=== PATIENT | female | born 1930 | race Caucasian/White ===

== ENCOUNTER → 2017-02-04 | Outpatient (CLI) | payer MEDICARE, BC ==
--- NOTE | 2017-02-05 13:22 | PE ---
EXAMINATION TYPE: PET CT fusion skull to thigh DATE OF EXAM: 02/04/2017 6:55 PM COMPARISON: No relevant studies. Prior PET/CT: No priors. HISTORY: Melanoma TECHNIQUE: Following the intravenous administration of 15.5 to mCi of F-18 FDG, whole body images ar e performed from the skull base to the midthigh. Images are reviewed on the computer in the coronal, axial, and sagittal planes. Reconstructed rotating images are created on independent workstation an d reviewed on the computer. A localization and attenuation correction CT is performed in conjunctio n with the PET scan. DLP: 486.67 and 100.4 mGycm SCAN: Initial Blood glucose: 113 mg/dL Average Mediastinum SUV: 2.1 Average Liver SUV: 3.56 FINDINGS: NECK: No abnormal uptake THORAX: There is a focal area of increased radiotracer within the left upper lung field measuring 3.9 2 Hounsfield units, image 83. A nodular density within the anterior left upper lung field has Hounsfi eld unit measuring 26, image 91. A posterior nodule at the same level on the left lung measures 7.3 S UV. Within the right lung near the mediastinum is an SUV value nodule measuring 5.1 on image 91 PET s can. Nodules are at the level of the aorto pulmonic window level within the left and right upper lung cote measuring 2.7 SUV on the left measuring 3.98 SUV on the right. PET image 98. A nodule in the left perihilar region has an SUV value of 18.34. PET image 102. A posterior left lung nodule has an S UV value of 15. Image 106. Couple of subtle infrahilar areas and intermediate uptake of 1.9 with a mo re suspicious area of 3.0 more laterally, PET image 106. A right middle lobe anterior mediastinal nod ule has an SUV value of 9.7, PET image 111. External to the CT localization scan which appears to lie within the lateral arm on the left there are 2 focal areas of increased radiotracer accumulation holly picious for additional metastatic lesions measuring SUV value of 13 and 7.8. PET image 110. Couple of small nodules within the right lung base on image 113 has an SUV value 2.6 posteriorly and 6.5 anter iorly. 2 posterior left lung nodules on image 118 measure 11.5 and 5.7 SUV values. At the same level on the right is a 4.7 SUV value nodule. An additional left arm area of uptake is present. ABDOMEN: No abnormal uptake PELVIS: Within the anterior pelvis and what may be the cecum is uptake. Focal uptake within the bowel can be normal. Metastatic lesion is not excluded. Additionally, within the mid sigmoid colon is a fo paula area of increased radiotracer accumulation likewise could be normal uptake or metastatic lesion. These are somewhat more focal in typically expected. Within the subcutaneous tissues anterior lateral right thigh is a focal area of increased uptake measuring 9.5 SUV value. Image 249. There is a subcu taneous area of uptake within the anterior medial left thigh, image 296 with an SUV value of 4.3. OSSEOUS STRUCTURES: No abnormal uptake Lower extremities: Lower thighs through the feet abnormal radiotracer accumulation Brain: Radiotracer accumulation within the brain appears appropriate and symmetrical. No suspicious f ocal accumulations are evident. LOCALIZATION CT: Nodules within the lung cote. Correspond to abnormal uptake suspicious for metasta tic melanoma. Sigmoid diverticulosis is present. The ascending thoracic aorta at the level of the donald n pulmonary artery is 2.9 cm. The main pulmonary artery at the bifurcation is 2.4 cm. COMPARISON: None IMPRESSION: 1. Multiple pulmonary nodules suspicious for metastatic melanoma. 2. Radiotracer accumulation within the bilateral soft tissues of the thigh suspicious for metastatic disease. 3. Additionally, there may be soft tissue metastatic disease within the left arm. Injection site accu mulation within this region is within the differential which is incompletely evaluated on this exam. 4. Uptake within a focal area which may be the cecum and the mid sigmoid colon within the pelvis are nonspecific. Metastatic disease as well as normal uptake within loops of bowel are within the differe ntial.
== END | disposition home or self-care (01) ==
LOC: RADPETMAIN 15:18
PROVIDERS: ATTEND Family Medicine
DX: C43.62 Malignant melanoma of left upper limb, including shoulder (principal); R91.8 Other nonspecific abnormal finding of lung field
CPT/HCPCS: 78815; A9552

== ENCOUNTER → 2017-02-17 | Outpatient (CLI) | payer MEDICARE, BC ==
[2017-02-17 14:26] VITALS: BP 133/61; PULSE 90; RESP 16; TEMP 98.5
--- NOTE | 2017-02-17 16:21 | P.PCN ---
Date of Procedure: 02/17/17 Procedure(s) Performed: PREOPERATIVE DIAGNOSIS: Left arm recurrent melanoma POSTOPERATIVE DIAGNOSIS: Same PROCEDURE: Incisional biopsy SURGEON: Shane EBL: 5 mL ANESTHESIA: Local COMPLICATIONS: None OPERATIVE PROCEDURE: The left arm was prepped with DuraPrep. The skin was localized with lidocaine. An elliptical incision was made excising the majority of what appeared to represent a metastatic melanoma deposit in the left brachial region. The specimen size was 1.5 x 1 cm. The subcutaneous tissues were closed using 3-0 Vicryl sutures and the skin was closed using 4-0 nylon sutures. Dressings were applied. DISPOSITION: Stable to recovery room
== END | disposition home or self-care (01) ==
LOC: PROCWHC3 14:06
PROVIDERS: ATTEND Surgery
DX: C43.62 Malignant melanoma of left upper limb, including shoulder (principal); L57.8 Other skin changes due to chronic exposure to nonionizing radiation; W89.9XXA Exposure to unspecified man-made visible and ultraviolet light, initial encounter
CPT/HCPCS: 88305; 88341; 88342

== ENCOUNTER → 2017-07-22 | Outpatient (CLI) | payer MEDICARE, BC ==
--- NOTE | 2017-07-25 14:59 | PE ---
Nuclear medicine PET/CT HISTORY: Melanoma The patient received 14.4 mCi F-18 FDG intravenously and delayed whole-body scanning was performed. W hole body CT scan also performed for attenuation correction, localization. Comparison to previous exam dated 02/04/2017 Head and neck: No evident adenopathy. No suspicious hypermetabolic uptake. CHEST: Multiple lung masses are again noted. Left upper lobe mass pleural-based anteriorly and measur es approximately 3 cm in greatest transverse dimension whereas on previous exam the lesion measured 2 .4 cm., SUV 8.8 decreased from prior, SUV 28. In the superior segment of the left lower lobe there is a soft tissue mass measuring approximately 12 mm in diameter which measured 14 mm on prior, SUV 3.1 as compared to prior exam SUV 15. Left upper lobe lesions that were subcentimeter in size on previous exam as well as in the left lower lobe are not seen. There is a lesion towards the left hilum measur ing approximately 18 mm which measured approximately the same on prior, SUV 8.3 as compared to prior 18.3. There is no pleural effusion. Right upper lobe lesion is also no longer seen. Retrocaval pretra cheal lymph node is again noted, prevascular nodes again seen. The heart remains enlarged. Abdomen pelvis: No suspicious mass or hypermetabolic uptake. EXTREMITIES: There is some hypermetabolic uptake seen within the soft tissues at the level of the mid diaphysis of the left humerus. There is associated hypermetabolic uptake. SUV 5.2, decreased from pr ior when it measured 24. IMPRESSION: Tumor response as described.
== END | disposition home or self-care (01) ==
LOC: RADPETMAIN 10:19
PROVIDERS: ATTEND Internal Medicine Hematology & Oncology
DX: C43.62 Malignant melanoma of left upper limb, including shoulder (principal)
CPT/HCPCS: 78816; A9552

== ENCOUNTER 2017-12-09 12:14 | Emergency (ER) | payer MEDICARE, BC ==
[2017-12-09] MEDS ORDERED: PIPERACILLIN-TAZOBACTAM 3.375 GM in DEXTROSE/WATER 1 50ML.BAG IVPB STA (12:57)
[2017-12-09] MEDS ORDERED: SODIUM CHLORIDE 0.9% 500 ML IV SCH (13:00)
--- NOTE | 2017-12-09 13:06 | ED ---
General Adult HPI - General Chief complaint: Wound/Laceration Stated complaint: Right foot problems Time Seen by Provider: 12/09/17 12:42 Source: patient, family, RN notes reviewed Mode of arrival: wheelchair Limitations: no limitations - History of Present Illness Initial comments: Patient is a pleasant 87-year-old female presenting to the emergency Department with complaints of right foot problems. Patient developed blisters in September. Patient did see a vascular doctor and was referred to another vascular doctor. Patient canceled 2 appointments and never followed up. Family noticed today that patient has not been moving around the house and leaving the department. They also noticed problems with the right foot. Patient states right foot pain only occurs with ambulation. Patient is diabetic. Patient does complain of some right knee discomfort. - Related Data Home Medications Medication Instructions Recorded Confirmed Atorvastatin [Lipitor] 40 mg PO HS 02/17/17 12/09/17 Metoprolol Tartrate [Lopressor] 50 mg PO BID 02/17/17 12/09/17 amLODIPine BESYLATE [Norvasc] 5 mg PO BID 02/17/17 12/09/17 diphenhydrAMINE [Benadryl] 50 mg PO DAILY PRN 09/20/17 12/09/17 glipiZIDE XL [Glucotrol Xl] 2.5 mg PO DAILY 12/09/17 12/09/17 Allergies Allergy/AdvReac Type Severity Reaction Status Date / Time Influenza Virus Vaccines Allergy Unknown Verified 12/09/17 13:25 lisinopril Allergy Rash/Hives Verified 12/09/17 13:25 Review of Systems ROS Statement: Those systems with pertinent positive or pertinent negative responses have been documented in the HPI. ROS Other: All systems not noted in ROS Statement are negative. Constitutional: Denies: fever Eyes: Denies: eye pain ENT: Denies: ear pain Respiratory: Denies: cough Cardiovascular: Denies: chest pain Endocrine: Denies: fatigue Gastrointestinal: Denies: abdominal pain Genitourinary: Denies: dysuria Musculoskeletal: Denies: back pain Skin: Reports: rash Neurological: Denies: weakness Past Medical History Past Medical History: Cancer, Chest Pain / Angina, Diabetes Mellitus, GERD/ Reflux, Hyperlipidemia, Hypertension, Myocardial Infarction ([place]) Additional Past Medical History / Comment(s): melanoma 2016 Last Myocardial Infarction Date:: 2011 History of Any Multi-Drug Resistant Organisms: None Reported Past Surgical History: Adenoidectomy, Appendectomy, Heart Catheterization, Hysterectomy, Tonsillectomy Additional Past Surgical History / Comment(s): oartic valve replacement Past Anesthesia/Blood Transfusion Reactions: No Reported Reaction Past Psychological History: No Psychological Hx Reported Smoking Status: Former smoker Past Alcohol Use History: None Reported Past Drug Use History: None Reported - Past Family History Father Additional Family Medical History / Comment(s): black lung Mother History Unknown: Yes Family Medical History: Congestive Heart Failure (CHF) Additional Family Medical History / Comment(s): heart problems General Exam Limitations: no limitations General appearance: alert, in no apparent distress Head exam: Present: atraumatic Eye exam: Present: normal appearance, PERRL ENT exam: Present: normal oropharynx Neck exam: Present: normal inspection Respiratory exam: Present: normal lung sounds bilaterally Cardiovascular Exam: Present: regular rate, normal rhythm, systolic murmur Expanded Peripheral pulses: 0: Posterior Tibialis (R), Posterior Tibialis (L), Dorsalis Pedis (R), Dorsalis Pedis (L), 1+: Femoral (R), Femoral (L) GI/Abdominal exam: Present: soft. Absent: tenderness Extremities exam: Present: other (Absent pulses right foot. There is erythema extending to just below the knee. There is gangrenous discoloration of the distal toes, especially the great toe. There is a stage II ulcers to the distal right and lateral right midfoot. No tenderness. Left foot also with absent pulses and minimal gangrenous discoloration to the left great toe.) Neurological exam: Present: alert Psychiatric exam: Present: normal affect, normal mood Skin exam: Present: other (Erythema right lower leg. Gangrenous discoloration right foot and left great toe. Ulcers right foot.) Course Vital Signs 12/09/17 12:17 Temperature 97.6 F Pulse Rate 85 Respiratory 18 Rate Blood Pressure 139/90 O2 Sat by Pulse 98 Oximetry - Reevaluation(s) Reevaluation #1: 12/09/17 13:05 Unable to get right dorsalis pedis or posterior tibialis pulse with Doppler. Left dorsalis pedis is faint with Doppler. EKG Findings - EKG Comments: EKG Findings:: Normal sinus rhythm 91. PA 178. QRS 104. QT 384. QTC 472. Left axis. Septal Q waves. Nonspecific ST-T. Medical Decision Making - Medical Decision Making Case was discussed with Dr. Barbour who is going to surgery at this time and does recommend transfer. He believes patient was supposed to see Dr. Dubon, and family agrees. Case was then discussed with Dr. Ramirez at [facility], who will accept transfer. Patient and family were updated. - Lab Data Result diagrams: 12/09/17 13:03 Lab Results 12/09/17 12/09/17 Range/Units 13:03 13:03 WBC 15.3 H (3.8-10.6) k/uL RBC 4.47 (3.80-5.40) m/uL Hgb 12.9 (11.4-16.0) gm/dL Hct 41.6 (34.0-46.0) % MCV 93.0 (80.0-100.0) fL MCH 28.8 (25.0-35.0) pg MCHC 31.0 (31.0-37.0) g/dL RDW 12.6 (11.5-15.5) % Plt Count 401 (150-450) k/uL Neutrophils % 86 % Lymphocytes % 7 % Monocytes % 5 % Eosinophils % 2 % Basophils % 0 % Neutrophils # 13.2 H (1.3-7.7) k/uL Lymphocytes # 1.1 (1.0-4.8) k/uL Monocytes # 0.7 (0-1.0) k/uL Eosinophils # 0.2 (0-0.7) k/uL Basophils # 0.0 (0-0.2) k/uL Hypochromasia Slight PT 10.2 (9.0-12.0) sec INR 1.0 (<1.2) APTT 22.6 (22.0-30.0) sec Disposition Clinical Impression: Arterial insufficiency, Gangrene of right foot Disposition: OTHER INSTITUTION NOT DEFINED Condition: Serious Referrals: Akbar Paredes DO [Primary Care Provider] - 1-2 days Time of Disposition: 13:30 - Out of Hospital Transfer - Req. Specs Out of Hospital Transfer - Requested Specifics: Other Emergency Center
[2017-12-09 13:18] LABS: Basophils % (A) 0 %; Eosinophils # (A) 0.2 k/uL (0-0.7); Eosinophils % (A) 2 %; HCT 41.6 % (34.0-46.0); HGB 12.9 gm/dL (11.4-16.0); Hypochromasia Slight; Lymphocytes # (A) 1.1 k/uL (1.0-4.8); Lymphocytes % (A) 7 %; MCH 28.8 pg (25.0-35.0); Mean Platelet Volume 6.9; Monocytes # (A) 0.7 k/uL (0-1.0); Monocytes % (A) 5 %; Neutrophils # (A) 13.2 k/uL (1.3-7.7); Neutrophils % (A) 86 %; Platelet Count 401 k/uL (150-450); RBC 4.47 m/uL (3.80-5.40); RDW 12.6 % (11.5-15.5); WBC 15.3 k/uL (3.8-10.6)
[2017-12-09 13:26] LABS: Partial Thromboplastin Time 22.6 sec (22.0-30.0); Prothrombin Time 10.2 sec (9.0-12.0)
[2017-12-09 13:28] LABS: ALT 26 U/L (9-52); AST 31 U/L (14-36); Albumin 3.1 g/dL (3.5-5.0); Alkaline Phosphatase 142 U/L (38-126); Anion Gap 11 mmol/L; Blood Urea Nitrogen 15 mg/dL (7-17); Calcium 8.8 mg/dL (8.4-10.2); Carbon Dioxide 27 mmol/L (22-30); Chloride 100 mmol/L (98-107); Glucose 164 mg/dL (74-99); Potassium 4.2 mmol/L (3.5-5.1); Sodium 138 mmol/L (137-145); Total Bilirubin 0.7 mg/dL (0.2-1.3); Total Protein 6.5 g/dL (6.3-8.2)
--- NOTE | 2017-12-09 14:05 | XR ---
EXAMINATION TYPE: XR foot complete RT , 4 VIEWS DATE OF EXAM ORDERED: 12/09/2017 HISTORY: Pain. COMPARISON: None. FINDINGS: There has been previous vascular surgery. There are hammertoe deformities of the second through fifth digits. There is a hyperextension of the first digit. No fracture, dislocation or other acute osseous lesion is seen. No destructive lesion is identified. There is a plantar and Achilles calcaneal spur. IMPRESSION: 1. NO ACUTE OSSEOUS LESION. 2. POSTSURGICAL CHANGE. 3. CALCANEAL SPURS. 4. HAMMERTOE DEFORMITIES OF THE SECOND THROUGH FIFTH DIGITS.
--- NOTE | 2017-12-09 14:06 | XR ---
EXAMINATION TYPE: XR knee complete RT , 3 VIEWS DATE OF EXAM ORDERED: 12/09/2017 HISTORY: Pain. COMPARISON: None. FINDINGS: There is been previous vascular surgery on the left. There is medial joint space loss. There is peaking of intercondylar spines. There is no fracture, dis location or joint effusion is seen. There is vascular calcification. IMPRESSION: 1. OSTEOARTHRITIS. 2. NO ACUTE OSSEOUS LESION. 3. POSTSURGICAL CHANGE. IMPRESSION:
[2017-12-09] MEDS ORDERED: ACETAMINOPHEN TAB 325 MG TAB PO STA (14:12)
[2017-12-09 14:13] VITALS: BP 170/74; PULSE 95; RESP 17; TEMP 99.7
[2017-12-09] MEDS ORDERED: MORPHINE SULFATE 4 MG/ML SYRINGE IVP STA (14:55)
== END 2017-12-09 14:59 | disposition short-term general hospital (02) ==
LOC: EC 12:14
DX: I77.1 Stricture of artery (principal); I96 Gangrene, not elsewhere classified; E11.9 Type 2 diabetes mellitus without complications; E78.5 Hyperlipidemia, unspecified; I10 Essential (primary) hypertension; I25.2 Old myocardial infarction; Z85.820 Personal history of malignant melanoma of skin; Z87.891 Personal history of nicotine dependence; Z88.7 Allergy status to serum and vaccine; Z88.8 Allergy status to other drugs, medicaments and biological substances; Z79.84 Long term (current) use of oral hypoglycemic drugs; Z79.899 Other long term (current) drug therapy
CPT/HCPCS: 99284; 96365; 96375; 96361; 36415; 93005; 80053; 83605; 85025; 85610; 85730; 87040; 87070; 87205; 87077; 87186; 73562; 73630; J2270; J2543